=== PATIENT | female | born 1985 | race Asian ===

== ENCOUNTER 2019-01-05 18:30 | Emergency (ER) | payer OTHER ==
[~2019-01-05] VITALS: Ht 162.6 cm; Wt 75.8 kg
[2019-01-05 20:11] VITALS: BP 115/77; TEMP 97.9
== END 2019-01-05 20:11 | disposition home or self-care (01) ==
LOC: ED 18:30
DX: N39.0 Urinary tract infection, site not specified (principal)
CPT/HCPCS: 81000; 81025; 99283

== ENCOUNTER 2019-07-13 16:13 | Emergency (ER) | payer OTHER ==
[~2019-07-13] VITALS: Ht 162.6 cm; Wt 77.1 kg
[2019-07-13 18:30] VITALS: BP 126/74; TEMP 98.6
== END 2019-07-13 18:30 | disposition home or self-care (01) ==
LOC: ED 16:13
DX: B34.9 Viral infection, unspecified (principal)
CPT/HCPCS: 81000; 87502; 87651; 99283